=== PATIENT | male | born 1945 | race Caucasian/White ===

== ENCOUNTER 2018-02-17 16:08 | Inpatient (IN) | payer MEDICARE, OTHER ==
--- NOTE | 2018-02-17 17:27 | ED Physician Chart ---
ED Chief Complaint/HPI - Patient Information Date Seen:: 02/17/18 Time Seen:: 17:16 Chief Complaint:: LEGS SWOLLEN History of Present Illness:: THIS IS A CHRONICALLY ILL 72 YO MALE HERE FOR AN EVALUATION AND TREATMENT OF CELLULITIS OF HIS LOWER EXTREMITIES. THIS PATIENT IS MENTALLY ILL AND CONFUSED. HE IS FROM HOME WITH POOR CARE. HE NEEDS TO BE PLACED IN A SNF. Allergies:: Allergies Allergy/AdvReac Type Severity Reaction Status Date / Time No Known Allergies Allergy Verified 02/17/18 17:02 Vitals:: Vital Signs - 8 hr 02/17/18 17:03 Temp 97.5 F HR 86 RR 18 BP 133/50 O2 Sat % 95 Historian:: Patient, Family Member Review:: Nurse's Note Reviewed ED Review of Systems - Review of Systems General/Constitutional: Other (THIS PATIENT IS UNABLE TO GIVE A REVIEW OF SYSTEMS) ED Past Medical History - Past Medical History Obtainable: Yes Past Medical History: Arthritis, Dementia, Other (FRACTURE LEFT HIP) Family History: None Social History: Non Smoker, No Alcohol, No Drug Use, Single Surgical History: None Psychiatricy History: Dementia Medication: Reviewed ED Physical Exam - Physical Examination General/Constitutional: Awake, Well-developed, well-nourished, Alert, No distress, GCS 15, Non-toxic appearing, Ambulatory Other Gen/Cons comments:: CONFUSED BUT AWAKE Head: Atraumatic Eyes: Lids, conjuctiva normal, PERRL, EOMI Skin: Nl inspection, No rash, No skin lesions, No ecchymosis, Well hydrated, No lymphadenopathy ENMT: External ears, nose nl, Nasal exam nl, Lips, teeth, gums nl Neck: Nontender, Full ROM w/o pain, No JVD, No nuchal rigidity, No bruit, No mass, No stridor Respiratory: Nl effort/Exclusion, Clear to Auscultation, No Wheeze/Rhonchi/Rales Cardio Vascular: RRR, No murmur, gallop, rubs, NL S1 S2 GI: No tenderness/rebounding/guarding, No organomegaly, No hernia, Normal BS's, Nondistended, No mass/bruits, No McBurney tenderness : No CVA tenderness Extremities: No tenderness or effusion, Full ROM, normal strength in all extremities, No edema, Normal digits & nails Other Extremities comments:: LEFT LOWER EXTREMITY IS LATERALLY ROTATED AND SWOLLEN WITH SOME CONTRACTIONS NOTED THERE IS BILATERAL EDEMA AND REDNESS OF BOTH LOWER EXTREMITIES. Neuro/Psych: Alert/oriented, DTR's symmetric, Normal sensory exam, Normal motor strength, Judgement/insight normal, Mood normal, Normal gait, No focal deficits Misc: Normal back, No paraspinal tenderness ED Labs/Radiology/EKG Results - Lab Results Results: Abnormal Lab Results 02/17/18 02/17/18 02/17/18 17:20 17:20 17:20 WBC 6.1 RBC 5.07 Hgb 14.7 Hct 45.4 MCV 89.6 MCH 29.1 MCHC Differential 32.5 RDW 16.2 Plt Count 195 MPV 7.1 Neutrophils % 72.8 Lymphocytes % 16.0 L Monocytes % 7.1 Eosinophils % 2.6 Basophils % 1.5 PT 12.1 H INR 1.17 Sodium 136 Potassium 4.1 Chloride 102 Carbon Dioxide 26.3 Anion Gap 11.8 BUN 17 Creatinine 0.6 L Est GFR ( Amer) TNP Est GFR (Non-Af Amer) TNP BUN/Creatinine Ratio 28.3 Glucose 92 Calcium 9.5 Total Bilirubin 0.7 AST 22 ALT 10 Alkaline Phosphatase 83 Troponin I Total Protein 6.9 Albumin 3.5 L Globulin 3.4 Albumin/Globulin Ratio 1.0 02/17/18 17:20 WBC RBC Hgb Hct MCV MCH MCHC Differential RDW Plt Count MPV Neutrophils % Lymphocytes % Monocytes % Eosinophils % Basophils % PT INR Sodium Potassium Chloride Carbon Dioxide Anion Gap BUN Creatinine Est GFR ( Amer) Est GFR (Non-Af Amer) BUN/Creatinine Ratio Glucose Calcium Total Bilirubin AST ALT Alkaline Phosphatase Troponin I 0.01 Total Protein Albumin Globulin Albumin/Globulin Ratio - Radiology Results Results: CHEST X-RAY = NAD - EKG Interpretations EKG Time:: 17:00 Rate & Rhythm: RATE =86, SINUS [place]: LEFT AXIS ED Assessment - Assessment General Assessment: DEMENTIA CELLULITIS ED Septic Shock - . Is Septic Shock (SBP<90, OR Lactate>4 mmol\L) present?: No - <6hrs of presentation: Vital Signs: Vital Signs - 8 hr 02/17/18 17:03 Temp 97.5 F HR 86 RR 18 BP 133/50 O2 Sat % 95 ED Reassessment (Disposition) - Reassessment Reassessment Condition:: Unchanged - Diagnosis Diagnosis:: DEMENTIA CELLULITIS SPASTICE DEFORMITY OF THE LOWER EXTREMITIES - Patient Disposition Discharge/Transfer:: Acute Care w/in this hosp Admitting Medical Physician:: Edmar Perez
[2018-02-17 17:54] LABS: % BASOPHILS 1.5 % (0.0-2.0); % EOSINOPHILS 2.6 % (0.0-5.0); % MONOCYTES 7.1 % (2.0-10.0); % NEUTROPHILS 72.8 % (40.0-80.0); BASOPHILE ABSOLUTE 0.1 Th/cumm (0-0.2); EOSINOPHILE ABSOLUTE 0.2 Th/cmm (0.1-0.4); HEMATOCRIT 45.4 % (41.0-60); HEMOGLOBIN 14.7 gm/dL (12-16); MEAN CELL VOLUME 89.6 fl (80-99); MEAN CORPUSCULAR HEMOGLOBIN 29.1 pg (27.0-31.0); MEAN CORPUSCULAR HGB CONC 32.5 pg (28.0-36.0); MEAN PLATELET VOLUME 7.1 fl; MONOCYTE ABSOLUTE 0.4 Th/cmm (0.3-1.0); NEUTROPHILE ABSOLUTE 4.4 Th/cmm (1.8-8.0); PLATELET COUNT 195 Th/cmm (150-400); RED BLOOD COUNT 5.07 Mil/cmm (3.80-5.80); RED CELL DISTRIBUTION WIDTH 16.2 % (11.5-20.0); WHITE BLOOD COUNT 6.1 Th/cmm (4.8-10.8)
[2018-02-17 18:09] LABS: INR 1.17 (0.5-1.4); PROTHROMBIN TIME (TEST) 12.1 SECONDS (9.5-11.5)
[2018-02-17 18:19] LABS: ALBUMIN 3.5 gm/dL (4.2-5.5); ALKALINE PHOSPHATASE 83 U/L (34-104); ANION GAP 11.8 (7.0-16.0); BILIRUBIN,TOTAL 0.7 mg/dL (0.3-1.0); BUN - UREA NITROGEN 17 mg/dL (7-25); CALCIUM SERUM 9.5 mg/dL (8.6-10.3); CARBON DIOXIDE 26.3 mEq/L (21.0-31.0); CHLORIDE 102 mEq/L (98-107); CREATININE - SERUM 0.6 mg/dL (0.7-1.3); GLUCOSE 92 mg/dL (70-105); POTASSIUM SERUM 4.1 mEq/L (3.5-5.1); SGOT 22 U/L (13-39); SGPT/ALT 10 U/L (7-52); SODIUM SERUM 136 mEq/L (136-145); TOTAL PROTEIN,SERUM 6.9 gm/dL (6.0-8.3)
[2018-02-17] MEDS ORDERED: Piperacillin Sodium/Tazobact 3.375 gm Vial IV ONE (23:11)
[2018-02-18 04:43] VITALS: BP 145/98
[2018-02-18] MEDS ORDERED: Piperacillin Sodium/Tazobact 3.375 gm Vial IV ONE (05:33)
[2018-02-18] MEDS ORDERED: Morphine Sulfate 2 mg/mL 1mL Syr IVP PRN (09:40)
[2018-02-18] MEDS: Morphine Sulfate 2 mg/mL 1mL Syr IVP PRN ×4 (09:59→21:13)
--- NOTE | 2018-02-18 10:23 | Diagnostic Imaging Report ---
Portable chest x-ray Time: 1706 History: Shortness of breath Allowing for portable technique the heart size is normal. No focal pulmonary parenchymal processes. No hilar or mediastinal abnormalities. Deformity of left chest wall most likely old. There is evidence for 1 cm ill-defined calcification the right apex. Correlation prior exams recommended. Impression: No acute abnormalities.
[2018-02-18] MEDS: APAP/Oxycodone 5/325mg Tab PO PRN ×3 (11:18→19:46)
--- NOTE | 2018-02-18 14:09 | Consultation ---
Consult Note - Consult Note Service Date: 02/18/18 Referring Physician: Edmar Perez Consult Note: PHYSICIAN Consultation Note: Date of Admission: 02/17/18 Purpose of Consultation: cellulitis Chief Complaint: Patient BISMARK BETTS was admitted to location Medical/Surgical Unit I with CELLULITIS, DEMENTIA. History of Present Illness: 72-year- male with history of bilateral ORIF for fractures, chronic intolerable hip pains. He has discoloration of the skin,with dryness. On initial evaluation, his temperature was 97.5 F and WBC count was 6,100. ID consult was called for management, suspecting cellulitis of both legs. Past Medical History: Arthritis, Dementia, BPH, Alcohol abuse, Seizures. Allergies Allergy/AdvReac Type Severity Reaction Status Date / Time No Known Allergies Allergy Verified 02/17/18 17:02 Vital Signs Temp 98.7 F 02/18/18 12:21 Pulse 88 02/18/18 12:21 Resp 20 02/18/18 12:21 BP 157/91 02/18/18 12:21 Pulse Ox 98 02/18/18 12:21 Intake & Output 02/17/18 02/18/18 02/18/18 18:59 06:59 18:59 Intake Total 100 Balance 100 Weight (lbs) 74.843 kg 0 g Intake: Intake, IV Amount 100 Piperacillin Sodium/ 100 Tazobact 3.375 gm In Sodium Chloride 0.9% 50 ml @ 100 mls/hr IV Q8HR [facility] Rx#:[id number] Other: Weight Source Patient stated Patient stated Laboratory Results - last 24 hr 02/17/18 02/17/18 02/17/18 17:20 17:20 17:20 WBC 6.1 RBC 5.07 Hgb 14.7 Hct 45.4 MCV 89.6 MCH 29.1 MCHC Differential 32.5 RDW 16.2 Plt Count 195 MPV 7.1 Neutrophils % 72.8 Lymphocytes % 16.0 L Monocytes % 7.1 Eosinophils % 2.6 Basophils % 1.5 PT 12.1 H INR 1.17 Sodium 136 Potassium 4.1 Chloride 102 Carbon Dioxide 26.3 Anion Gap 11.8 BUN 17 Creatinine 0.6 L Est GFR ( Amer) TNP Est GFR (Non-Af Amer) TNP BUN/Creatinine Ratio 28.3 Glucose 92 Calcium 9.5 Total Bilirubin 0.7 AST 22 ALT 10 Alkaline Phosphatase 83 Troponin I Total Protein 6.9 Albumin 3.5 L Globulin 3.4 Albumin/Globulin Ratio 1.0 TSH 02/17/18 02/17/18 17:20 17:20 WBC RBC Hgb Hct MCV MCH MCHC Differential RDW Plt Count MPV Neutrophils % Lymphocytes % Monocytes % Eosinophils % Basophils % PT INR Sodium Potassium Chloride Carbon Dioxide Anion Gap BUN Creatinine Est GFR ( Amer) Est GFR (Non-Af Amer) BUN/Creatinine Ratio Glucose Calcium Total Bilirubin AST ALT Alkaline Phosphatase Troponin I 0.01 Total Protein Albumin Globulin Albumin/Globulin Ratio TSH 1.40 Home Medication Medication Instructions Recorded Type Acamprosate Calcium 333 mg PO BID 02/17/18 History Docusate Sodium 200 mg PO BID 02/17/18 History Folic Acid [Folate*] 1 mg PO DAILY 02/17/18 History Gabapentin [Neurontin*] 300 mg PO TID 02/17/18 History Levetiracetam [Keppra] 500 mg PO BID 02/17/18 History Morphine Sulfate 30 mg PO Q8H 02/17/18 History Oxycodone HCl/Acetaminophen 1 each PO Q6H PRN 02/17/18 History [Percocet 325 mg-10 mg*] Tamsulosin [Flomax] 0.4 mg PO HS 02/17/18 History Trazodone HCl 100 mg PO HS 02/17/18 History Current Medications Generic Name Dose Route Start Last Admin Trade Name Freq PRN Reason Stop Dose Admin Duloxetine HCl 30 mg 02/19/18 09:00 Cymbalta PO 04/20/18 08:59 DAILY JOHANNE Protocol Vancomycin HCl 1 gm/ Sodium 250 mls @ 165 mls/hr 02/18/18 09:00 02/18/18 10: 01 Chloride IV 04/19/18 08:59 165 mls/hr DAILY JOHANNE Administration Piperacillin Sod/Tazobactam 50 mls @ 100 mls/hr 02/17/18 21:50 02/18/18 12:57 Sod 3.375 gm/ Sodium Chloride IV 04/18/18 21:49 100 mls/hr Q8HR JOHANNE Administration Morphine Sulfate 2 mg 02/18/18 09:39 02/18/18 13:30 Morphine IVP 04/19/18 09:38 2 mg Q4H PRN Administration Pain (Severe) Morphine Sulfate 1 mg 02/18/18 09:40 Morphine IVP 04/19/18 09:39 Q4H PRN Pain (Moderate) Oxycodone/Acetaminophen 1 tab 02/18/18 09:38 02/18/18 11:18 Percocet 5/325mg Oral Tab PO 04/19/18 09:37 1 tab Q4H PRN Administration Pain (Mild) Review of Systems: A 12 point ROS was reviewed with the pertinent positive and negatives noted in the HPI. Social History Smoking Status Smoker, status unknown Family Medical History Unknown. Physical Exam: General: comfortable. cachectic. c/o severe bilateral hip pains. HEENT: HEAD: NC NT. ORAL CAVITY: moist pink tongue. Pupil PERRLA. EOMI, Neck: Supple, no JVD, No carotid bruit. Cardio: S1 and S2 wnl. Respiratory: CTAP. Abdominal: Soft NT TND BS present Genital/Urinary: Extremities: NCCR Neurological: AAQ x 3. Assessment: 1. Dry skin dermatitis. 2, BPH 3. Chronic hip pain. 4. Dementia. 5. alcoholzUse. Plan: Skin care. Millan management: Diaudiod X1 Thank you, Dr Perez for involving me taking care tioein this case Signed, Jose Hidalgo M.D. [id number]
[2018-02-18] MEDS ORDERED: VTE Chemical Prophylaxis Screen/Admission MC PRN (14:11)
[2018-02-18] MEDS ORDERED: HYDROmorphone 2 mg/mL 1mL Vial IVP ONE (14:20)
[2018-02-18] MEDS ORDERED: HYDROmorphone 1 mg/mL 1mL Syr IVP PRN (14:57)
[2018-02-18] MEDS ORDERED: Probiotic Screen MC PRN (15:22)
[2018-02-18] MEDS: Ammonium Lactate Cream 140 gm Tube TP SCH (16:38)
[2018-02-18] MEDS: Lactobacillus Rhamnosus GG 15 Billion CFU CAP.SPRINK PO SCH (16:40)
--- NOTE | 2018-02-18 17:17 | Consultation ---
DATE OF CONSULTATION: 02/18/2018 HISTORY OF PRESENT ILLNESS: A 72-year-old male here for evaluation of cellulitis, unspecified history of mental illness, patient denies, although he is attesting to severe depression, melancholy, states he is depressed because he is not feeling that his medical condition is getting better and he is losing hope, attests to terrible sleep, fair appetite. "I hope to have hope". The patient is also attesting to a lot of pain. States he has fallen in the past, broken bones. PAST PSYCHIATRIC HISTORY: Dementia, depression. The patient denies any suicide attempts. FAMILY HISTORY: Noncontributory. SOCIAL HISTORY: The patient states that he was born in [place]. Not , no kids. States that he had been living in a group home facility. The patient states that he has cut down on his cigarettes significantly and no longer drinks alcohol. MENTAL STATUS EXAMINATION: Disheveled, unkempt, fair eye contact. Mood "okay." Affect constricted. Thought processes were grossly linear. No SI, no HI. No overt psychotic symptoms. Insight and judgment appeared reasonable. He wants help. PROVISIONAL DIAGNOSIS: Dementia per documentation, also major depression, unspecified. MEDICAL: Please see full H and P. RECOMMENDATIONS AND PLAN: Ongoing concerns about his ability to care for his basic needs. We will continue to monitor and initiate medications to address depression symptoms, pain such as Cymbalta. The patient with apparent periods of confusion. [facility]# [id number]
[2018-02-18] MEDS: HYDROmorphone 2 mg/mL 1mL Vial IVP PRN ×2 (18:19→22:21)
[2018-02-18] MEDS ORDERED: ACETAMINOPHEN PO PRN (19:25)
[2018-02-18] MEDS ORDERED: OXYCODONE HCL PO PRN (19:25)
[2018-02-18] MEDS ORDERED: Haloperidol Lactate 5 mg/mL 1mL Vial IM ONE (19:40)
[2018-02-18] MEDS: Non-Formulary Item 1 EA (Morphine Sulfate [Morphine Sulfate] 30 MG) PO SCH (19:42)
[2018-02-18] MEDS ORDERED: Non-Formulary Item 1 EA (Trazodone Hcl [Trazodone Hcl] 100 MG) PO SCH (21:00)
--- NOTE | 2018-02-18 21:35 | History & Physical ---
ADMIT DATE: 02/17/2018 CHIEF COMPLAINT: The patient complained of bilateral leg swelling and was admitted for bilateral leg swelling and cellulitis. HISTORY OF PRESENT ILLNESS: The patient is chronically ill 72-year-old male patient came in, complaining of bilaterally lower leg pain and swelling and redness. The patient is mentally ill. The patient has been taking ____. The patient also be evaluated for correction admission. The patient known to have history of arthritis, dementia, and history of left hip fracture in the past. The patient was awake. REVIEW OF SYSTEMS: Negative. PHYSICAL EXAMINATION: GENERAL: Awake, alert, male patient. VITAL SIGNS: Noted. HEAD: Normal. ENT: Normal. NECK: Supple, nontender. LUNGS: Clear. CARDIOVASCULAR SYSTEM: S1, S2 regular. EXTREMITIES: Bilateral leg tenderness and swelling was noted. Left lower extremity laterally rotated and retracted with history of fracture in the past. LABORATORY DATA: The patient's white count was 6.1 and hemoglobin 14.7. Electrolytes are normal. EKG showed left axis deviation. DIAGNOSES: History of left hip fracture and bilateral leg cellulitis, more over the left side, history of dementia, history of arthritis. PLAN: The patient is being admitted, was given antibiotic, will have psychiatrist evaluation as well as Dr. Jose Hidalgo, ID consult. The patient is going to be placed on IV antibiotics and I will also give him a banana bag for his alcoholism, so the patient's diagnoses again; skin dermatitis with cellulitis, BPH, left hip pain, history of fracture of the left hip in the past, history of dementia, and alcohol abuse. JOB# [id number]
[2018-02-19] MEDS: APAP/Oxycodone 5/325mg Tab PO PRN ×3 (00:12→10:04)
[2018-02-19] MEDS: Non-Formulary Item 1 EA (Morphine Sulfate [Morphine Sulfate] 30 MG) PO SCH ×2 (03:10→11:31)
[2018-02-19] MEDS: HYDROmorphone 2 mg/mL 1mL Vial IVP PRN ×4 (04:15→23:04)
[2018-02-19] MEDS: Morphine Sulfate 2 mg/mL 1mL Syr IVP PRN ×2 (05:04→19:43)
[2018-02-19] MEDS: Ammonium Lactate Cream 140 gm Tube TP SCH ×2 (08:12→17:52)
[2018-02-19] MEDS: Lactobacillus Rhamnosus GG 15 Billion CFU CAP.SPRINK PO SCH (08:13)
--- NOTE | 2018-02-19 08:46 | Diagnostic Imaging Report ---
Left hip 2 views Indication: pain Comparison: none Findings: Exam is severely limited due to positioning. Postsurgical changes of left proximal femur seen with deformity of the left hip joint and probable old fractures of possible resorption of the left femoral head. Atherosclerosis is noted. Surgical hardware and cement material is seen within the left femur. Impression: Severely limited exam demonstrating postsurgical changes of the left femur with deformity of the left femoral head and possible previous fracture in this region. The left femoral head is not well visualized which may be a posttraumatic or surgical sequela. Please correlate clinically. If necessary CT may be obtained for further assessment. In the setting of trauma, if clinical symptoms persist and there is continued concern for an occult fracture, follow up exams in 5-7 days is suggested.
--- NOTE | 2018-02-19 08:48 | Diagnostic Imaging Report ---
Right hip 2 views Indication: pain Comparison: Left hip x-rays the same day Findings: There is evidence of previous intramedullary deepthi and screw fixation of previous proximal right femoral fracture. Moderate degenerative changes of the right hip joint are seen with calcification seen superior and lateral to the right femoral head. Additional heterotopic calcifications are seen along the lesser trochanteric region. No gross hardware loosening based on the limited images provided. No gross acute fracture. Atherosclerosis is noted. Osteopenia is noted. Impression: Evidence of previous right femoral fracture fixation with associated postsurgical changes and areas of heterotopic ossification. No evidence of hardware loosening. Note that the distal aspect of the femoral intramedullary deepthi is incompletely visualized. Consider additional views if indicated. No gross acute fracture identified Degenerative changes. Atherosclerotic vascular disease. In the setting of trauma, if clinical symptoms persist and there is continued concern for an occult fracture, follow up exams in 5-7 days is suggested.
[2018-02-19] MEDS ORDERED: ACAMPROSATE CALCIUM 333 MG PO SCH (09:00)
[2018-02-19 09:35] LABS: BUN - UREA NITROGEN 11 mg/dL (7-25); CALCIUM SERUM 8.7 mg/dL (8.6-10.3); CARBON DIOXIDE 29.4 mEq/L (21.0-31.0); CHLORIDE 99 mEq/L (98-107); CREATININE - SERUM 0.6 mg/dL (0.7-1.3); GLUCOSE 117 mg/dL (70-105); POTASSIUM SERUM 3.4 mEq/L (3.5-5.1); SODIUM SERUM 134 mEq/L (136-145)
[2018-02-19] MEDS ORDERED: Haloperidol Lactate 5 mg/mL 1mL Vial IM PRN (11:22)
[2018-02-19 13:57] LABS: RED BLOOD COUNT 4.44 Mil/cmm (3.80-5.80)
[2018-02-19 13:58] LABS: % BASOPHILS 0.5 % (0.0-2.0); % EOSINOPHILS 3.4 % (0.0-5.0); % NEUTROPHILS 71.1 % (40.0-80.0); EOSINOPHILE ABSOLUTE 0.1 Th/cmm (0.1-0.4); HEMATOCRIT 40.5 % (41.0-60); HEMOGLOBIN 13.2 gm/dL (12-16); LYMPHOCYTE ABSOLUTE 0.6 Th/cmm (1.5-3.0); MEAN CELL VOLUME 91.1 fl (80-99); MEAN CORPUSCULAR HEMOGLOBIN 29.8 pg (27.0-31.0); MEAN CORPUSCULAR HGB CONC 32.7 pg (28.0-36.0); MEAN PLATELET VOLUME 8.1 fl; MONOCYTE ABSOLUTE 0.4 Th/cmm (0.3-1.0); NEUTROPHILE ABSOLUTE 2.9 Th/cmm (1.8-8.0); PLATELET COUNT 155 Th/cmm (150-400); RED CELL DISTRIBUTION WIDTH 15.4 % (11.5-20.0)
[2018-02-19] MEDS ORDERED: Influenza Vaccine (5 yr & older) 0.5 ml Syr IM ONE (14:00)
--- NOTE | 2018-02-19 15:29 | General Progress Note ---
Subjective - Review of Systems Events since last encounter: pt. very confused, agitated, cellulitis improving Objective - Results Result Diagrams: 02/19/18 08:45 02/19/18 08:45 Recent Labs: Laboratory Last Values WBC 4.0 Th/cmm (4.8-10.8) L 02/19/18 08:45 RBC 4.44 Mil/cmm (3.80-5.80) 02/19/18 08:45 Hgb 13.2 gm/dL (12-16) 02/19/18 08:45 Hct 40.5 % (41.0-60) L 02/19/18 08:45 MCV 91.1 fl (80-99) 02/19/18 08:45 MCH 29.8 pg (27.0-31.0) 02/19/18 08:45 MCHC Differential 32.7 pg (28.0-36.0) 02/19/18 08:45 RDW 15.4 % (11.5-20.0) 02/19/18 08:45 Plt Count 155 Th/cmm (150-400) 02/19/18 08:45 MPV 8.1 fl 02/19/18 08:45 Neutrophils % 71.1 % (40.0-80.0) 02/19/18 08:45 Lymphocytes % 16.0 % (20.0-50.0) L 02/19/18 08:45 Monocytes % 9.0 % (2.0-10.0) 02/19/18 08:45 Eosinophils % 3.4 % (0.0-5.0) 02/19/18 08:45 Basophils % 0.5 % (0.0-2.0) 02/19/18 08:45 PT 12.1 SECONDS (9.5-11.5) H 02/17/18 17:20 INR 1.17 (0.5-1.4) 02/17/18 17:20 Sodium 134 mEq/L (136-145) L 02/19/18 08:45 Potassium 3.4 mEq/L (3.5-5.1) L 02/19/18 08:45 Chloride 99 mEq/L (98-107) 02/19/18 08:45 Carbon Dioxide 29.4 mEq/L (21.0-31.0) 02/19/18 08:45 Anion Gap 9.0 (7.0-16.0) 02/19/18 08:45 BUN 11 mg/dL (7-25) 02/19/18 08:45 Creatinine 0.6 mg/dL (0.7-1.3) L 02/19/18 08:45 Est GFR ( Amer) TNP 02/19/18 08:45 Est GFR (Non-Af Amer) TNP 02/19/18 08:45 BUN/Creatinine Ratio 18.3 02/19/18 08:45 Glucose 117 mg/dL (70-105) H 02/19/18 08:45 Calcium 8.7 mg/dL (8.6-10.3) 02/19/18 08:45 Total Bilirubin 0.7 mg/dL (0.3-1.0) 02/17/18 17:20 AST 22 U/L (13-39) 02/17/18 17:20 ALT 10 U/L (7-52) 02/17/18 17:20 Alkaline Phosphatase 83 U/L (34-104) 02/17/18 17:20 Troponin I 0.01 ng/mL (0.01-0.05) 02/17/18 17:20 Total Protein 6.9 gm/dL (6.0-8.3) 02/17/18 17:20 Albumin 3.5 gm/dL (4.2-5.5) L 02/17/18 17:20 Globulin 3.4 gm/dL 02/17/18 17:20 Albumin/Globulin Ratio 1.0 (1.0-1.8) 02/17/18 17:20 TSH 1.40 uIU/ml (0.34-5.60) 02/17/18 17:20 Vancomycin Trough 9.5 ug/mL (5-10) 02/19/18 08:45 - Physical Exam Vitals and I&O: Vital Signs Temp 98.4 F 02/19/18 12:00 Pulse 80 02/19/18 12:00 Resp 18 02/19/18 12:00 BP 139/98 02/19/18 12:00 Pulse Ox 97 02/19/18 12:00 Intake & Output 02/18/18 02/19/18 02/19/18 18:59 06:59 18:59 Intake Total 650 350 Output Total 150 Balance 650 200 Weight (lbs) 67.268 kg 66.814 kg Intake: Intake, IV Amount 50 350 Piperacillin Sodium/ 50 100 Tazobact 3.375 gm In Sodium Chloride 0.9% 50 ml @ 100 mls/hr IV Q8HR [facility] Rx#:[id number] Vancomycin HCl 1 gm In 250 Sodium Chloride 0.9% 250 ml @ 165 mls/hr IV Q12HR [facility] Rx#:[id number] Oral 600 Output: Urine 150 Other: # Voids 3 # Bowel Movements 2 Stool Characteristics Soft Soft Soft Formed Formed Formed Brown Brown Brown Weight Source Bedscale Bedscale Active Medications: Current Medications Docusate Sodium (Colace) 200 mg PO BID [facility] Stop: 04/20/18 08:59 Last Admin: 02/19/18 08:12 Dose: 200 mg Duloxetine HCl (Cymbalta) 30 mg PO DAILY [facility]; Protocol Stop: 04/20/18 08:59 Last Admin: 02/19/18 08:13 Dose: 30 mg Folic Acid (Folate) 1 mg PO DAILY [facility] Stop: 04/20/18 08:59 Last Admin: 02/19/18 08:13 Dose: 1 mg Gabapentin (Neurontin) 300 mg PO TID [facility] Stop: 04/19/18 20:59 Last Admin: 02/19/18 13:04 Dose: 300 mg Haloperidol Lactate (Haldol) 2 mg IM Q6H PRN PRN Reason: Agitation Stop: 04/20/18 11:21 Heparin Sodium (Porcine) (Heparin) 5,000 units SUBQ Q12HR [facility] Stop: 04/19/18 20:59 Last Admin: 02/19/18 08:13 Dose: 5,000 units Hydromorphone HCl (Dilaudid) 1 mg IVP Q4H PRN PRN Reason: mild to moderate pain Stop: 04/19/18 14:56 Hydromorphone HCl (Dilaudid) 2 mg IVP Q4H PRN PRN Reason: Severe Pain Stop: 04/19/18 14:57 Last Admin: 02/19/18 09:08 Dose: 2 mg Piperacillin Sod/Tazobactam (Sod 3.375 gm/ Sodium Chloride) 50 mls @ 100 mls/ hr IV Q8HR [facility] Stop: 04/18/18 21:49 Last Admin: 02/19/18 13:18 Dose: 100 mls/hr Vancomycin HCl 1.25 gm/ Sodium (Chloride) 250 mls @ 165 mls/hr IV Q12H [facility] Stop: 04/20/18 20:59 Lactic Acid (Lac-Hydrin Cream) 1 appl TP BID [facility] Stop: 04/19/18 16:59 Last Admin: 02/19/18 08:12 Dose: 1 appl Lactobacillus Rhamnosus (Culturelle 15b) 1 each PO DAILY [facility] Stop: 04/19/18 15:59 Last Admin: 02/19/18 08:13 Dose: 1 each Levetiracetam (Keppra) 500 mg PO BID [facility] Stop: 04/20/18 08:59 Last Admin: 02/19/18 08:13 Dose: 500 mg Lorazepam (Ativan) 1 mg IVP Q4H PRN; Protocol PRN Reason: Agitation Stop: 04/19/18 17:05 Last Admin: 02/19/18 10:38 Dose: 1 mg Miscellaneous (Vte Chemical Prophylaxis Screen/ Admission) 1 ea [facility] PRN PRN PRN Reason: PROTOCOL Stop: 04/19/18 14:10 Miscellaneous (Probiotic Screen) 1 ea [facility] PRN PRN PRN Reason: PROTOCOL Stop: 04/19/18 15:21 Miscellaneous (Vancomycin Iv Per Pharmacy) 1 ea [facility] PRN PRN PRN Reason: PROTOCOL Stop: 04/19/18 16:28 Miscellaneous (Acamprosate Calcium [Acamprosate Calcium]) 333 mg PO BID [facility] Stop: 04/20/18 08:59 Morphine Sulfate (Morphine) 2 mg IVP Q4H PRN PRN Reason: Pain (Severe) Stop: 04/19/18 09:38 Last Admin: 02/19/18 05:04 Dose: 2 mg Morphine Sulfate (Morphine) 1 mg IVP Q4H PRN PRN Reason: Pain (Moderate) Stop: 04/19/18 09:39 Morphine Sulfate (Morphine Ir) 30 mg PO Q8H [facility] Stop: 04/19/18 19:29 Last Admin: 02/19/18 12:49 Dose: 30 mg Oxycodone/Acetaminophen (Percocet 5/325mg Oral Tab) 1 tab PO Q4H PRN PRN Reason: Pain (Mild) Stop: 04/19/18 09:37 Last Admin: 02/19/18 10:04 Dose: 1 tab Tamsulosin HCl (Flomax) 0.4 mg PO [facility] Stop: 04/19/18 20:59 Last Admin: 02/18/18 21:20 Dose: 0.4 mg Trazodone HCl (Desyrel) 100 mg PO [facility] Stop: 04/19/18 20:59 General: Alert, No acute distress HEENT: Atraumatic, PERRLA, EOMI Neck: Supple Cardiovascular: Regular rate Lungs: Clear to auscultation Abdomen: Bowel sounds Psych/Mental Status: Other (pt. confused ) Assessment/Plan - Assessment Assessment: bilateral leg cellulitis h/o left hip fracture h/o dementia h/o OA - Plan Plan: cpm
--- NOTE | 2018-02-20 01:12 | Consultation ---
DATE OF CONSULTATION: 02/19/2018 HISTORY OF PRESENT ILLNESS: A 72-year-old male with history and evaluation for cellulitis, unspecified mental illness, dementia per documentation. On [id number], the patient is sleeping, arousable, opens his eyes, but does not want to talk to me. Staff noting he has been complaining of lot of pain and wants to be transferred to a different hospital. Resting comfortably at this time. Unfortunately, I am not able to speak with him for the above stated reason. Discussed with staff, also chart review. PAST PSYCHIATRIC HISTORY: Noted. SOCIAL HISTORY: Noted. MENTAL STATUS EXAMINATION: Unkempt. Little eye contact. Sleeping, but arousable, not want to talk to me. Thought processes were hard to assess. Thought content hard to assess. PROVISIONAL DIAGNOSIS: Dementia per documentation; major depression, unspecified. RECOMMENDATIONS AND PLAN: I will continue to monitor. Medications were noted. No overt suicidal gestures, no homicidal gestures. Per staff mostly complaining of pain. I initiated Cymbalta. We will continue to monitor and follow up. JOB# [id number]
[2018-02-20] MEDS: HYDROmorphone 2 mg/mL 1mL Vial IVP PRN ×4 (03:16→15:30)
[2018-02-20] MEDS: Lactobacillus Rhamnosus GG 15 Billion CFU CAP.SPRINK PO SCH (08:46)
[2018-02-20] MEDS: Ammonium Lactate Cream 140 gm Tube TP SCH ×2 (08:52→16:55)
[2018-02-20] MEDS: Morphine Sulfate 2 mg/mL 1mL Syr IVP PRN ×2 (12:02→16:44)
--- NOTE | 2018-02-20 15:13 | General Progress Note ---
Subjective - Review of Systems Service Date: 02/20/18 Objective - Results Result Diagrams: 02/19/18 08:45 02/19/18 08:45 Recent Labs: Laboratory Last Values WBC 4.0 Th/cmm (4.8-10.8) L 02/19/18 08:45 RBC 4.44 Mil/cmm (3.80-5.80) 02/19/18 08:45 Hgb 13.2 gm/dL (12-16) 02/19/18 08:45 Hct 40.5 % (41.0-60) L 02/19/18 08:45 MCV 91.1 fl (80-99) 02/19/18 08:45 MCH 29.8 pg (27.0-31.0) 02/19/18 08:45 MCHC Differential 32.7 pg (28.0-36.0) 02/19/18 08:45 RDW 15.4 % (11.5-20.0) 02/19/18 08:45 Plt Count 155 Th/cmm (150-400) 02/19/18 08:45 MPV 8.1 fl 02/19/18 08:45 Neutrophils % 71.1 % (40.0-80.0) 02/19/18 08:45 Lymphocytes % 16.0 % (20.0-50.0) L 02/19/18 08:45 Monocytes % 9.0 % (2.0-10.0) 02/19/18 08:45 Eosinophils % 3.4 % (0.0-5.0) 02/19/18 08:45 Basophils % 0.5 % (0.0-2.0) 02/19/18 08:45 PT 12.1 SECONDS (9.5-11.5) H 02/17/18 17:20 INR 1.17 (0.5-1.4) 02/17/18 17:20 Sodium 134 mEq/L (136-145) L 02/19/18 08:45 Potassium 3.4 mEq/L (3.5-5.1) L 02/19/18 08:45 Chloride 99 mEq/L (98-107) 02/19/18 08:45 Carbon Dioxide 29.4 mEq/L (21.0-31.0) 02/19/18 08:45 Anion Gap 9.0 (7.0-16.0) 02/19/18 08:45 BUN 11 mg/dL (7-25) 02/19/18 08:45 Creatinine 0.6 mg/dL (0.7-1.3) L 02/19/18 08:45 Est GFR ( Amer) TNP 02/19/18 08:45 Est GFR (Non-Af Amer) TNP 02/19/18 08:45 BUN/Creatinine Ratio 18.3 02/19/18 08:45 Glucose 117 mg/dL (70-105) H 02/19/18 08:45 Calcium 8.7 mg/dL (8.6-10.3) 02/19/18 08:45 Total Bilirubin 0.7 mg/dL (0.3-1.0) 02/17/18 17:20 AST 22 U/L (13-39) 02/17/18 17:20 ALT 10 U/L (7-52) 02/17/18 17:20 Alkaline Phosphatase 83 U/L (34-104) 02/17/18 17:20 Troponin I 0.01 ng/mL (0.01-0.05) 02/17/18 17:20 Total Protein 6.9 gm/dL (6.0-8.3) 02/17/18 17:20 Albumin 3.5 gm/dL (4.2-5.5) L 02/17/18 17:20 Globulin 3.4 gm/dL 02/17/18 17:20 Albumin/Globulin Ratio 1.0 (1.0-1.8) 02/17/18 17:20 TSH 1.40 uIU/ml (0.34-5.60) 02/17/18 17:20 Vancomycin Trough 9.5 ug/mL (5-10) 02/19/18 08:45 - Physical Exam Vitals and I&O: Vital Signs Temp 98.3 F 02/20/18 11:48 Pulse 74 02/20/18 11:48 Resp 18 02/20/18 11:55 BP 131/64 02/20/18 11:48 Pulse Ox 96 02/20/18 11:48 Intake & Output 02/19/18 02/20/18 02/20/18 18:59 06:59 18:59 Intake Total 50 350 Output Total 100 Balance 50 250 Weight (lbs) 76.839 kg Intake: Intake, IV Amount 50 350 Piperacillin Sodium/ 50 100 Tazobact 3.375 gm In Sodium Chloride 0.9% 50 ml @ 100 mls/hr IV Q8HR [facility] Rx#:[id number] Vancomycin HCl 1.25 gm In 250 Sodium Chloride 0.9% 250 ml @ 165 mls/hr IV Q12H [facility] Rx#:[id number] Output: Urine 100 Other: Stool Characteristics Soft Soft Soft Formed Formed Formed Brown Brown Brown Weight Source Bedscale Active Medications: Current Medications Docusate Sodium (Colace) 200 mg PO BID [facility] Stop: 04/20/18 08:59 Last Admin: 02/20/18 08:46 Dose: 200 mg Duloxetine HCl (Cymbalta) 30 mg PO DAILY [facility]; Protocol Stop: 04/20/18 08:59 Last Admin: 02/20/18 08:46 Dose: 30 mg Folic Acid (Folate) 1 mg PO DAILY [facility] Stop: 04/20/18 08:59 Last Admin: 02/20/18 08:47 Dose: 1 mg Gabapentin (Neurontin) 300 mg PO TID [facility] Stop: 04/19/18 20:59 Last Admin: 02/20/18 13:19 Dose: 300 mg Haloperidol Lactate (Haldol) 2 mg IM Q6H PRN PRN Reason: Agitation Stop: 04/20/18 11:21 Heparin Sodium (Porcine) (Heparin) 5,000 units SUBQ Q12HR [facility] Stop: 04/19/18 20:59 Last Admin: 02/20/18 08:46 Dose: 5,000 units Hydromorphone HCl (Dilaudid) 1 mg IVP Q4H PRN PRN Reason: mild to moderate pain Stop: 04/19/18 14:56 Hydromorphone HCl (Dilaudid) 2 mg IVP Q4H PRN PRN Reason: Severe Pain Stop: 04/19/18 14:57 Last Admin: 02/20/18 11:14 Dose: 2 mg Piperacillin Sod/Tazobactam (Sod 3.375 gm/ Sodium Chloride) 50 mls @ 100 mls/ hr IV Q8HR [facility] Stop: 04/18/18 21:49 Last Admin: 02/20/18 13:19 Dose: 100 mls/hr Vancomycin HCl 1.5 gm/ Sodium (Chloride) 500 mls @ 250 mls/hr IV Q12H [facility] Stop: 04/21/18 20:59 Lactic Acid (Lac-Hydrin Cream) 1 appl TP BID [facility] Stop: 04/19/18 16:59 Last Admin: 02/20/18 08:52 Dose: 1 appl Lactobacillus Rhamnosus (Culturelle 15b) 1 each PO DAILY [facility] Stop: 04/19/18 15:59 Last Admin: 02/20/18 08:46 Dose: 1 each Levetiracetam (Keppra) 500 mg PO BID [facility] Stop: 04/20/18 08:59 Last Admin: 02/20/18 08:47 Dose: 500 mg Lorazepam (Ativan) 1 mg IVP Q4H PRN; Protocol PRN Reason: Agitation Stop: 04/19/18 17:05 Last Admin: 02/20/18 09:45 Dose: 1 mg Miscellaneous (Vte Chemical Prophylaxis Screen/ Admission) 1 ea PRN PRN PRN Reason: PROTOCOL Stop: 04/19/18 14:10 Miscellaneous (Probiotic Screen) 1 ea PRN PRN PRN Reason: PROTOCOL Stop: 04/19/18 15:21 Miscellaneous (Vancomycin Iv Per Pharmacy) 1 ea PRN PRN PRN Reason: PROTOCOL Stop: 04/19/18 16:28 Miscellaneous (Acamprosate Calcium [Acamprosate Calcium]) 333 mg PO BID [facility] Stop: 04/20/18 08:59 Morphine Sulfate (Morphine) 2 mg IVP Q4H PRN PRN Reason: Pain (Severe) Stop: 04/19/18 09:38 Last Admin: 02/20/18 12:02 Dose: 2 mg Morphine Sulfate (Morphine) 1 mg IVP Q4H PRN PRN Reason: Pain (Moderate) Stop: 04/19/18 09:39 Morphine Sulfate (Morphine Ir) 30 mg PO Q8H [facility] Stop: 04/19/18 19:29 Last Admin: 02/20/18 13:20 Dose: 30 mg Oxycodone/Acetaminophen (Percocet 5/325mg Oral Tab) 1 tab PO Q4H PRN PRN Reason: Pain (Mild) Stop: 04/19/18 09:37 Last Admin: 02/19/18 10:04 Dose: 1 tab Tamsulosin HCl (Flomax) 0.4 mg PO [facility] Stop: 04/19/18 20:59 Last Admin: 02/19/18 20:26 Dose: 0.4 mg Trazodone HCl (Desyrel) 100 mg PO [facility] Stop: 04/19/18 20:59
[2018-02-20] MEDS ORDERED: Potassium Chloride 20 mEq ER Tab PO ONE (15:35)
[2018-02-20] MEDS ORDERED: Vancomycin HCl 1.5 GM in Sodium Chloride 0.9% 500 ML IV SCH (21:00)
--- NOTE | 2018-02-20 23:27 | Progress Notes ---
DATE: 02/20/2018 Case was discussed with staff of the patient, reviewed records. The patient is a 72-year-old male who was admitted on 02/17/2018. He was here because of cellulitis of the spine, mental illness and dementia. The patient was uncooperative on mental status examination. He has been in pain, wants to be transferred to a different hospital. When I tried talking today, I was unsuccessful, unable to provide meaningful conversation. He has a history of dementia. There has been no intent to harm himself or anybody. He was initiated on Cymbalta by Dr. Benton yesterday and 50 mg daily and has been on Haldol every 6 hours as needed because of episodes of agitation and he is in pain and has been getting morphine. Thank you very much for allowing me to participate in the care of this most interesting gentleman. JOB# [id number]
== END 2018-02-20 18:15 | DRG 603 ==
LOC: ER 16:08 → MSI 18:56
PROVIDERS: ADMIT Internal Medicine; ATTEND Internal Medicine
DX: L03.116 Cellulitis of left lower limb (principal); L85.3 Xerosis cutis; L03.115 Cellulitis of right lower limb; N40.0 Benign prostatic hyperplasia without lower urinary tract symptoms; F03.90 Unspecified dementia, unspecified severity, without behavioral disturbance, psychotic disturbance, mood disturbance, and anxiety; M19.90 Unspecified osteoarthritis, unspecified site; F32.9 Major depressive disorder, single episode, unspecified; G89.29 Other chronic pain; R56.9 Unspecified convulsions; F10.20 Alcohol dependence, uncomplicated; Z79.899 Other long term (current) drug therapy
CPT/HCPCS: 36415-UA; 71045-TC; 73501; 80048-TC; 80053-TC; 80202-TC; 84443-TC; 84484-TC; 85025-TC; 85610-TC; 93005; J1170; J1630; J1644; J2060; J2270; J2543; J3370; J7040; Z7610